=== PATIENT | female | born 1980 | race Caucasian/White ===

== ENCOUNTER 2016-04-25 23:01 | Emergency (ER) | payer OTHER ==
[~2016-04-25 23:01] MED LIST: DILA2TAB2 PO; FOLI1 PO; IBUP600 PO; PANT20 PO; PRENCAP6 PO
--- NOTE | 2016-04-25 23:56 | PD ---
HPI Chief Complaint decreased movement Date Seen: Apr 25, 2016 Travel History International Travel<30 Days: No Contact w/Intl Traveler<30Days: No History of Present Illness HPI 28-29 wks c/o dec FM tonight after dinner , she drank a glass of OJ - no help . , denies bleeding or SROM Para: 3 : 4 History Obstetric History Obstetric History PCS and vaginal deliveries prior Past Surgical History Narrative Surgical c section Social History Alcohol Use: No Tobacco Use: No Substance Abuse: No Allergies-Medications (Allergen,Severity, Reaction): Coded Allergies: Acetaminophen (Verified Allergy, Severe, Anaphylaxis, 05/22/11) Codeine (Verified Allergy, Severe, SWELLING/HIVES - PERCODAN OK PER WRITTEN ORDER, 05/22/11) Morphine (Verified Allergy, Severe, SWELLING/HIVES, 05/22/11) Percocet (Verified Allergy, Severe, HIVES; SWELLING, 05/22/11) Tylenol (Verified Allergy, Severe, SWELLING/HIVES, 05/22/11) Ultram (Verified Allergy, Severe, SWELLING/HIVES, 05/22/11) Home Meds Active Scripts Ibuprofen (Motrin 600 Mg Tab)600 Mg [id number] Mg PO Q6H #30 TAB Prov:Irineo Contreras MD 04/27/14 Hydromorphone Hcl (Dilaudid 2 Mg Tab)2 Mg Tab2 Mg PO Q3H #30 TAB Ref 0 Prov:Irineo Contreras MD 04/27/14 Reported Medications Pantoprazole Sod (Protonix)20 Mg Tabdr20 Mg PO DAILY 04/25/14 Folic Acid (Folate 1 Mg Tab)1 Mg Tab1 Mg PO DAILY 04/25/14 Mv & Min W/Fe Fumarat ( 1) Cap1 Cap PO DAILY 04/25/14 Physical Exam Narrative GENERAL: Well-nourished, well-developed patient. SKIN: Warm and dry. HEAD: Normocephalic and atraumatic. EYES: No scleral icterus. No injection or drainage. ENT: No nasal drainage noted. Mucous membranes pink. Airway patent. NECK: Supple, trachea midline. No JVD. CARDIOVASCULAR: Regular rate and rhythm without murmurs, gallops, or rubs. RESPIRATORY: Breath sounds equal bilaterally. No accessory muscle use. BREASTS: Bilateral exam showed no masses , no retractions, no nipple discharge. ABDOMEN/GI: Abdomen soft, non-tender, bowel sounds present, no rebound, no guarding Gravid to [28-] weeks size Fundal Height: [-28] GENITOURINARY: External Genitalia: intact and normal in appearance BUS glands: [-] Cervix: [-] not checked ] Membranes: [intact ] Uterine Contractions: [none-] FHT's: Category: [1-] Baseline: [-135] Reactive: [yes for 28 wks-] Variability: [-mod] Decels: [none-] EXTREMITIES: No cyanosis or edema. BACK: Nontender without obvious deformity. No CVA tenderness. NEUROLOGICAL: Awake and alert. Motor and sensory grossly within normal limits. Five out of 5 muscle strength in all muscle groups. Normal speech. MDM Interpretation(s) 28-29 wks with dec FM today , here NST reactive for 28 wk fetus , no CTXs , and since being here she is feeling some motion Plan D/C home after 1 hr on monitor F/U with Dr Contreras Diagnosis Diagnosis: Primary Impression: Decreased movement affecting management of in third trimester Additional Impression: Previous section Disposition: DISCHARGE HOME Condition: Stable Ivan Lizarraga II, MD Apr 25, 2016 23:56
== END 2016-04-26 00:05 | disposition home or self-care (01) ==
LOC: HOBED 23:01
DX: O36.8130 Decreased fetal movements, third trimester, not applicable or unspecified (principal); O34.219 Maternal care for unspecified type scar from previous cesarean delivery; Z3A.28 28 weeks gestation of pregnancy
CPT/HCPCS: 99284

== ENCOUNTER 2016-05-28 15:48 | Emergency (ER) | payer OTHER ==
[2016-05-28] VITALS (7 sets, daily range): BP systolic 134–147; BP diastolic 79–86; PULSE 90–109; RESP 18; TEMP 98.3
--- NOTE | 2016-05-28 16:21 | PD ---
HPI Travel History International Travel<30 Days: No Contact w/Intl Traveler<30Days: No Known Affected Area: No History of Present Illness HPI This patient is a 35-year-old 4 para 3003 EDC is July 12, 2016 presently at 33 weeks and 5 days seen in the office today where her blood pressure was elevated 170/100 and she sent to triage area for a PIH workup sugar previous section she is scheduled for repeat section July 05, [address] Contreras course is significant for positive group B strep in her urine history of gastric reflux Presently the patient states she's had a headache since Friday denies any visual changes sees occasional Flonase baby is active no rupture of membranes no vaginal bleeding mild nausea History Past Medical History Narrative Medical Patient is allergic to morphine and codeine Tylenol all all Ultram No major medical problems History of endometriosis Ulcerative colitis GERD Polycystic ovaries History of HPV History of hypertension Obstetric History Obstetric History 4 para 3 Previous Past Surgical History Narrative Surgical Osteophyte removed and left hand Right ovarian torsion Right knee Tonsillectomy Family History Narrative Family History Stroke high blood pressure heart disease melanoma breast cancer and colon cancer Social History Alcohol Use: No Tobacco Use: No Substance Abuse: No Allergies-Medications (Allergen,Severity, Reaction): Coded Allergies: Acetaminophen (Verified Allergy, Severe, Anaphylaxis, 05/22/11) Codeine (Verified Allergy, Severe, SWELLING/HIVES - PERCODAN OK PER WRITTEN ORDER, 05/22/11) Morphine (Verified Allergy, Severe, SWELLING/HIVES, 05/22/11) Percocet (Verified Allergy, Severe, HIVES; SWELLING, 05/22/11) Tylenol (Verified Allergy, Severe, SWELLING/HIVES, 05/22/11) Ultram (Verified Allergy, Severe, SWELLING/HIVES, 05/22/11) Home Meds Active Scripts Ibuprofen (Motrin 600 Mg Tab)600 Mg [id number] Mg PO Q6H #30 TAB Prov:Irineo Contreras MD 04/27/14 Hydromorphone Hcl (Dilaudid 2 Mg Tab)2 Mg Tab2 Mg PO Q3H #30 TAB Ref 0 Prov:Irineo Contreras MD 04/27/14 Reported Medications Pantoprazole Sod (Protonix)20 Mg Tabdr20 Mg PO DAILY 04/25/14 Folic Acid (Folate 1 Mg Tab)1 Mg Tab1 Mg PO DAILY 04/25/14 Mv & Min W/Fe Fumarat ( 1) Cap1 Cap PO DAILY 04/25/14 Review of Systems General / Constitutional: No: Fever, Weight Gain, Weight Loss, Chills, Other Eyes: Other HENT: Headaches Cardiovascular: No: Irregular Rhythm, Chest Pain or Discomfort, Palpitations, Tachycardia, Syncope, Varicosities, Edema, Cyanosis, Other Respiratory: No: Cough, Short of Breath, Wheezing, Other Gastrointestinal: Nausea Genitourinary: No: Urgency, Frequency, Dysuria, Nocturia, Hematuria, Decreased Urinary Output, Oliguria, Hesitancy, Dribbling, Incontinence, Pelvic Pain, Dyspareunia, Discharge, Menorrhagia, Vaginal Bleeding, Other Musculoskeletal: No: Limited ROM, Weakness, Cramping, Edema, Pain, Other Skin: No Rash, No Itching, No Dryness, No Lumps, No Change in Pigmentation, No Change in Nails, No Alopecia, No Lesions, No Breast Lumps, No Breast Tenderness , No Breast Swelling, No Other Neurologic: No: Weakness, Dizziness, Syncope, Focal Abnormalities, Coordination Problem, Headache, Slurred Speech, Seizures, Other Physical Exam Narrative GENERAL: Well-nourished, well-developed patient. Alert oriented 3 and cooperative in no acute distress CARDIOVASCULAR: Regular rate and rhythm without murmurs, gallops, or rubs. RESPIRATORY: Breath sounds equal bilaterally. No accessory muscle use. ABDOMEN/GI: Abdomen soft, non-tender, bowel sounds present, no rebound, no guarding gravid consistent with stated gestational age no epigastric or right upper quadrant tenderness no rebound tenderness Gravid to [-] weeks size consistent with gestational age uterus is nontender Fundal Height: [-] GENITOURINARY: Pelvic exam is deferred as patient has no complaints of labor or ruptured membranes External Genitalia: intact and normal in appearance Membranes: [intact Uterine Contractions: [-]0 FHT's: Category: [-] 1 Baseline: [-] 150 Reactive: [-] + Variability: [-] Moderate [id number] variability Decels: [-] 0 EXTREMITIES: No cyanosis 1+ edema of lower extremities reflexes are 2+ and nonbrisk NEUROLOGICAL: Awake and alert. Motor and sensory grossly within normal limits. Five out of 5 muscle strength in all muscle groups. Normal speech. Data Data Vital Signs Reviewed: Yes (blood pressures 141/84 pulse is 105 she is afebrile) Orders Vital Signs (Adult) ARGELIA.Q4H (05/28/16 15:53) ^ Labor Status (05/28/16 15:53) Urinalysis - C+S If Indicated (05/28/16 15:53) ^ Hydration (05/28/16 15:53) Cbc No Diff, Includes Plts (05/28/16 15:53) Comprehensive Metabolic Panel (05/28/16 15:53) Uric Acid (05/28/16 15:53) MDM Medical Record Reviewed: Yes Interpretation(s) 35-year-old at 33 weeks and 5 days Not in labor Previous -induced hypertension rule out preeclampsia Positive group B strep Narrative Course / MDM Urinalysis shows no protein Platelet count is normal SGOT SGPT normal Uric acid is 5.2 Blood pressures have been running 140s over 80s to 130s over 80s last blood pressure 134/79 Plan External monitoring CBC, CMP, uric acid, urinalysis Blood pressure every 15 minutes on left tilt Reevaluation Discussed with Dr. Contreras Physician Communication Spoke with Dr. Contreras he agrees with evaluation and management States to do a 24-hour urine for protein Have patient follow-up in his office in 24-48 Will therefore discharge home kick count rest on left side to begin a 24- hour urine in the a.m. Diagnosis Diagnosis: Primary Impression: -induced hypertension in third trimester Additional Impression: Previous section Disposition: DISCHARGE HOME Condition: Stable Julee Ramos MD May 28, 2016 16:21
[2016-05-28 16:53] LABS: HEMATOCRIT 38.3 % (35.0-46.0); MEAN CELL VOLUME 91.6 FL (80.0-100.0); MEAN CORPUSCULAR HGB CONC 33.8 % (32.0-36.0); PLATELET COUNT 250 TH/MM3 (150-450); RED BLOOD COUNT 4.18 MIL/MM3 (4.00-5.30); RED CELL DISTRIBUTION WIDTH 13.5 % (11.6-17.2); REVIEW FLAG FINAL; WHITE BLOOD COUNT 10.3 TH/MM3 (4.0-11.0)
[2016-05-28 16:56] LABS: BACTERIA, URINE RARE /hpf; BLOOD, URINE NEG (NEG); COMMENT (UR) CULT NOT INDICATED; CULTURE IF INDICATED CULT NOT INDICATED; GLUCOSE,URINE NEG (NEG); KETONE, URINE NEG (NEG); NITRITE,URINE NEG (NEG); SQUAMOUS EPITHELIAL CELL URINE 6 /hpf (0-5); URINE COLOR YELLOW (YELLW/STRAW)
[2016-05-28 17:16] LABS: ALT (GPT) 27 U/L (10-53); ANION GAP 10 MEQ/L (5-15); AST (GOT) 27 U/L (15-37); BICARBONATE 23.4 MEQ/L (21.0-32.0); BLOOD UREA NITROGEN 6 MG/DL (7-18); CHLORIDE 104 MEQ/L (98-107); GLOMERULAR FILTRATION RATE 132 ML/MIN (>89); POTASSIUM 3.8 MEQ/L (3.5-5.1); SODIUM (NA) 137 MEQ/L (136-145); URIC ACID 5.2 MG/DL (2.6-6.0)
[2016-05-28 17:19] LABS: ALKALINE PHOSPHATASE 94 U/L (45-117); TOTAL BILIRUBIN ADULT 0.3 MG/DL (0.2-1.0)
== END 2016-05-28 17:34 | disposition home or self-care (01) ==
LOC: HOBED 15:48
DX: O13.3 Gestational [pregnancy-induced] hypertension without significant proteinuria, third trimester (principal); O34.219 Maternal care for unspecified type scar from previous cesarean delivery; K21.9 Gastro-esophageal reflux disease without esophagitis; E28.2 Polycystic ovarian syndrome; Z3A.33 33 weeks gestation of pregnancy
CPT/HCPCS: 36415; 59025; 80053; 81001; 84550; 85027

== ENCOUNTER 2016-06-18 11:06 | Emergency (ER) | payer OTHER ==
[2016-06-18] VITALS (8 sets, daily range): BP systolic 148–161; BP diastolic 76–98; PULSE 93–103; RESP 16
[2016-06-18] MEDS ORDERED: ASPIRIN 325 MG/CAFFEINE 40 MG/BUTALBITAL 50 MG CAP PO PRN (11:45)
[2016-06-18 12:06] LABS: HEMATOCRIT 39.1 % (35.0-46.0); MEAN CELL VOLUME 90.6 FL (80.0-100.0); MEAN CORPUSCULAR HEMOGLOBIN 30.4 PG (27.0-34.0); MEAN CORPUSCULAR HGB CONC 33.5 % (32.0-36.0); PLATELET COUNT 222 TH/MM3 (150-450); RED BLOOD COUNT 4.32 MIL/MM3 (4.00-5.30); RED CELL DISTRIBUTION WIDTH 13.9 % (11.6-17.2); REVIEW FLAG FINAL; WHITE BLOOD COUNT 12.6 TH/MM3 (4.0-11.0)
[2016-06-18 12:23] LABS: ALT (GPT) 20 U/L (10-53); ANION GAP 12 MEQ/L (5-15); AST (GOT) 17 U/L (15-37); BICARBONATE 21.5 MEQ/L (21.0-32.0); BLOOD UREA NITROGEN 7 MG/DL (7-18); CHLORIDE 106 MEQ/L (98-107); GLOMERULAR FILTRATION RATE 127 ML/MIN (>89); SODIUM (NA) 139 MEQ/L (136-145); URIC ACID 5.7 MG/DL (2.6-6.0)
[2016-06-18 12:26] LABS: ALKALINE PHOSPHATASE 108 U/L (45-117); TOTAL BILIRUBIN ADULT 0.3 MG/DL (0.2-1.0)
[2016-06-18 12:43] LABS: BLOOD, URINE NEG (NEG); COMMENT (UR) CULTURE INDICATED; CULTURE IF INDICATED CULTURE INDICATED; GLUCOSE,URINE NEG (NEG); KETONE, URINE NEG (NEG); MUCUS URINE FEW /lpf (OCC); NITRITE,URINE NEG (NEG); SQUAMOUS EPITHELIAL CELL URINE 9 /hpf (0-5); URINE COLOR YELLOW (YELLW/STRAW)
--- NOTE | 2016-06-18 13:02 | PD ---
HPI Chief Complaint Headache and seeing Green spots, mild nausea, just overall not feeling well Date Seen: Jun 18, 2016 Travel History International Travel<30 Days: No Contact w/Intl Traveler<30Days: No Known Affected Area: No History of Present Illness HPI Patient is a 35-year-old white female previous 1 at 36-37 weeks a pt of Dr. Contreras who sent her over here for blood pressure evaluation. Patient has been on Procardia last couple weeks for this. First pressure elevation in the is on 05/28/16 when she had 170/100 and the office and was medicated that point. Currently she denies abdominal pain other than just general discomfort no contractions no bleeding or rupture the membranes baby is active heart rate tracing is reactive. Her blood pressures here high 150s over high 80s until the last was 161/98, her urine shows 1+ protein is 1+ edema .the patient states that Dr Contreras plans another for her delivery. Discussed patient's case with Dr. Contreras he recommends home bed rest for 2 more days and then schedule section in 2 days. Para: 3 : 4 History Obstetric History Obstetric History History of macrosomic babies she had a shoulder dystocia one of her vaginal deliveries and had a last time because of a 11 pound baby Past Surgical History Narrative Surgical with last delivery Family History Family History: Negative Social History Alcohol Use: No Tobacco Use: No Substance Abuse: No Allergies-Medications (Allergen,Severity, Reaction): Coded Allergies: Acetaminophen (Verified Allergy, Severe, Anaphylaxis, 05/22/11) Codeine (Verified Allergy, Severe, SWELLING/HIVES - PERCODAN OK PER WRITTEN ORDER, 05/22/11) Morphine (Verified Allergy, Severe, SWELLING/HIVES, 05/22/11) Percocet (Verified Allergy, Severe, HIVES; SWELLING, 05/22/11) Tylenol (Verified Allergy, Severe, SWELLING/HIVES, 05/22/11) Ultram (Verified Allergy, Severe, SWELLING/HIVES, 05/22/11) Home Meds Active Scripts Ibuprofen (Motrin 600 Mg Tab)600 Mg [id number] Mg PO Q6H #30 TAB Prov:Irineo Contreras MD 04/27/14 Hydromorphone Hcl (Dilaudid 2 Mg Tab)2 Mg Tab2 Mg PO Q3H #30 TAB Ref 0 Prov:Irineo Contreras MD 04/27/14 Reported Medications Pantoprazole Sod (Protonix)20 Mg Tabdr20 Mg PO DAILY 04/25/14 Folic Acid (Folate 1 Mg Tab)1 Mg Tab1 Mg PO DAILY 04/25/14 Mv & Min W/Fe Fumarat ( 1) Cap1 Cap PO DAILY 04/25/14 Review of Systems Eyes: Visual changes HENT: Headaches Gastrointestinal: Nausea Neurologic: Headache Physical Exam Vital Signs Date Time Temp Pulse Resp B/P Pulse Ox O2 Delivery O2 Flow Rate FiO2 06/18/16 12:37 16 06/18/16 11:45 101 148/87 Narrative GENERAL: Well-nourished, well-developed patient. SKIN: Warm and dry. HEAD: Normocephalic and atraumatic. EYES: No scleral icterus. No injection or drainage. ENT: No nasal drainage noted. Mucous membranes pink. Airway patent. NECK: Supple, trachea midline. No JVD. CARDIOVASCULAR: Regular rate and rhythm without murmurs, gallops, or rubs. RESPIRATORY: Breath sounds equal bilaterally. No accessory muscle use. BREASTS: Bilateral exam showed no masses , no retractions, no nipple discharge. ABDOMEN/GI: Abdomen soft, non-tender, bowel sounds present, no rebound, no guarding Gravid to [-36] weeks size Fundal Height: [-35 cm] GENITOURINARY: External Genitalia: intact and normal in appearance BUS glands: [-] Cervix: [-] Not checked today she is not matthew and a is planned Membranes: [intact ] Uterine Contractions: [-none] FHT's: Category: [1-] Baseline: [144-] Reactive: [yes-] Variability: [-mod] Decels: [none-] EXTREMITIES: No cyanosis ,,1 + edema. BACK: Nontender without obvious deformity. No CVA tenderness. NEUROLOGICAL: Awake and alert. Motor and sensory grossly within normal limits. Five out of 5 muscle strength in all muscle groups. Normal speech.DTR1+ Data Data Orders Vital Signs (Adult) .ON ADMISSION (06/18/16 11:19) ^ Labor Status (06/18/16 11:19) Urinalysis - C+S If Indicated (06/18/16 11:19) Cbc No Diff, Includes Plts (06/18/16 11:19) Comprehensive Metabolic Panel (06/18/16 11:19) Uric Acid (06/18/16 11:19) [id number] 325-40-50 Mg (Fiorinal (06/18/16 11:45) Urine Culture (06/18/16 11:15) Labs Laboratory Tests Test 06/18/16 06/18/16 11:15 11:25 Urine Color YELLOW Urine Turbidity HAZY Urine pH 7.0 Urine Specific Castell 1.016 Urine Protein 30 Urine Glucose (UA) NEG Urine Ketones NEG Urine Occult Blood NEG Urine Nitrite NEG Urine Bilirubin NEG Urine Urobilinogen LESS THAN 2.0 Urine Leukocyte Esterase NEG Urine RBC LESS THAN 1 Urine WBC 2 Urine WBC Clumps RARE Urine Squamous Epithelial 9 Cells Urine Mucus FEW Microscopic Urinalysis Comment CULTURE INDICATED White Blood Count 12.6 Red Blood Count 4.32 Hemoglobin 13.1 Hematocrit 39.1 Mean Corpuscular Volume 90.6 Mean Corpuscular Hemoglobin 30.4 Mean Corpuscular Hemoglobin 33.5 Concent Red Cell Distribution Width 13.9 Platelet Count 222 Mean Platelet Volume 9.9 Sodium Level 139 Potassium Level 4.0 Chloride Level 106 Carbon Dioxide Level 21.5 Anion Gap 12 Blood Urea Nitrogen 7 Creatinine 0.55 Estimat Glomerular Filtration 127 Rate Random Glucose 85 Uric Acid 5.7 Calcium Level 8.9 Total Bilirubin 0.3 Aspartate Amino Transf 17 (AST/SGOT) Alanine Aminotransferase 20 (ALT/SGPT) Alkaline Phosphatase 108 Total Protein 6.5 Albumin 3.0 Date/Time Procedure Status Source Growth 06/18/16 11:15 Urine Culture Received Urine Clean Catch Pending MDM Interpretation(s) This patient is 35-year-old white female previous 1, 36-37 weeks is presenting for evaluation of high blood pressure. She does have some elevated pressures in the 150-160 range over 80s to last diastolic was 98, urine shows 1+ protein, she is 1+ edema, she also has generalized headache of this been on and off for the last couple weeks with she's been on Procardia for blood pressure. Her laboratories within normal limits. She is scheduled for repeat in the near future Plan Plan discussed the patient's evaluation and treatment with Dr. Contreras her OB doctor and the will at minimum admit the patient hospital for blood pressure issues. And it may be that she needs to go ahead and be delivered at this time Discussed her case with and he recommends home bed rest for 2 more days and then schedule section. Diagnosis Diagnosis: Primary Impression: -induced hypertension in third trimester Additional Impression: Headache Disposition: 01 DISCHARGE HOME Condition: Stable Ivan Lizarraga II, MD Jun 18, 2016 13:02
== END 2016-06-18 13:45 | disposition home or self-care (01) ==
LOC: HOBED 11:06
DX: O13.3 Gestational [pregnancy-induced] hypertension without significant proteinuria, third trimester (principal); Z3A.37 37 weeks gestation of pregnancy
CPT/HCPCS: 36415; 59025; 80053; 81001; 84550; 85027; 87086

== ENCOUNTER 2016-06-18 14:20 | Inpatient (IN) | payer OTHER ==
--- NOTE | 2016-06-20 08:24 | MH ---
cc: SHEILA SANTOS DATE OF ADMISSION 06/20/2016 ADMITTING DIAGNOSIS 1. Intrauterine at 37 weeks. 2. Preeclampsia HISTORY Mrs. Lewis is a 35-year-old female para 3-0-0-3 who has been followed in the clinic for her . In the midportion of her , she began to experience high blood pressure. We actually started her some Procardia and her pressure has continued to climb. She was seen in the emergency room the day before yesterday and was noted to have fairly normal laps, but her pressure remains elevated. She has preeclampsia and has a previous section, therefore we are bringing her in early to perform the surgery because of the preeclampsia. PAST OB HISTORY She is para 3-0-0-3. She does have a history of hypertension. 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 Her cultures were negative. PAST MEDICAL HISTORY Remarkable for: 1. Gastroesophageal reflux disease 2. Hypertension 3. Polycystic ovaries PAST SURGICAL HISTORY Remarkable for: 1. Osteophyte removed from left hand in 2011. 2. Right ovarian torsion with oophorectomy in 2004. 3. Endometriosis surgery 2008. 4. Right knee cartilage repair 1991. 5. delivery 05/05. 6. Tonsillectomy in 1986. SOCIAL HISTORY She is . She denies drugs, alcohol or smoking during the . She was a former smoker. FAMILY HISTORY Remarkable for a history of stroke, high blood pressure, high cholesterol, heart disease, melanoma, breast cancer and colon cancer. ALLERGIES HER ALLERGIES ARE TYLENOL, CODEINE, MORPHINE, AND ULTRAM. MEDICATIONS Her medications are: 1. Procardia 30 mg one p.o. q. Day 2. Protonix 20 mg one p.o. q. day 3. Vitamins one p.o. q. Day 4. Ashtyn 30 mg one p.o. q. Day REVIEW OF SYSTEMS She is having mild headaches. She denies any right upper quadrant pain. PHYSICAL EXAM Her physical exam reveals a well-developed, well-nourished female in no acute distress. VITAL SIGNS: Her weight is 218 pounds. Her last pressure in the clinic was 170/108. HEENT: Normocephalic, atraumatic. NECK: Supple. Trachea is in the midline. No thyromegaly or adenopathy. CHEST: Clear to auscultation. HEART: Regular rate and rhythm without murmur. ABDOMEN: The abdomen is gravid and nontender. The fundus is nontender. PELVIC: The pelvic exam was deferred. EXTREMITIES: There is mild swelling in all extremities. Her reflexes are brisk at +3. The urinalysis in the office reveal +2 protein. LABORATORY DATA Her laboratory workup two days ago was normal except for the proteinuria. ASSESSMENT/PLAN 1. Intrauterine at 37 weeks 2. Preeclampsia with a previous section. We will bring her in today for a repeat section. 3. Carrier of group B strep on her urine culture. We will give her preop antibiotics anyway. 4. Hypertension. We will follow this to the period. She may be chronic hypertensive. R. MD HAILEY Mcmanus/YOVANI /7:55 AM 8:12 AM
[2016-06-20] MEDS ORDERED: LACTATED RINGER'S 1000 ML INJ 1,000 ML IV ONE (13:57)
[2016-06-20 14:12] LABS: AUTOMATED NEUTROPHIL # 7.8 TH/MM3 (1.8-7.7); BASOPHIL % 0.3 % (0.0-2.0); EOSINOPHIL # 0.1 TH/MM3 (0-0.4); EOSINOPHIL % 0.6 % (0.0-4.0); HEMO FLAGS DIFF FINAL; LYMPH % 21.4 % (9.0-44.0); LYMPHOCYTE # 2.4 TH/MM3 (1.0-4.8); MEAN CELL VOLUME 90.1 FL (80.0-100.0); MEAN CORPUSCULAR HEMOGLOBIN 31.5 PG (27.0-34.0); MONO % 6.9 % (0.0-8.0); NEUT % 70.8 % (16.0-70.0); PLATELET COUNT 237 TH/MM3 (150-450); RED BLOOD COUNT 4.22 MIL/MM3 (4.00-5.30); RED CELL DISTRIBUTION WIDTH 13.7 % (11.6-17.2); WHITE BLOOD COUNT 11.1 TH/MM3 (4.0-11.0)
[2016-06-20 14:23] LABS: AMPHETAMINE, URINE NEG (NEG); COCAINE, URINE NEG (NEG)
[2016-06-20 14:25] LABS: BARBITURATES, URINE POS (NEG)
[2016-06-20 14:26] LABS: BACTERIA, URINE FEW /hpf; BLOOD, URINE NEG (NEG); COMMENT (UR) CULT NOT INDICATED; CULTURE IF INDICATED CULT NOT INDICATED; GLUCOSE,URINE NEG (NEG); HYALINE CAST, URINE 2 /lpf (RARE); KETONE, URINE NEG (NEG); MUCUS URINE MANY /lpf (OCC); NITRITE,URINE NEG (NEG); PH, URINE 6.5 (5.0-8.5); SQUAMOUS EPITHELIAL CELL URINE 10 /hpf (0-5); TRANSITIONAL EPI CELLS, URINE <1 /hpf; URINE COLOR YELLOW (YELLW/STRAW)
[2016-06-20] MEDS ORDERED: LACTATED RINGER'S 1000 ML INJ 1,000 ML IV SCH ×2 (14:27→22:57)
[2016-06-20 14:29] LABS: ANION GAP 12 MEQ/L (5-15); AST (GOT) 22 U/L (15-37); BICARBONATE 21.5 MEQ/L (21.0-32.0); BLOOD UREA NITROGEN 10 MG/DL (7-18); CHLORIDE 105 MEQ/L (98-107); GLOMERULAR FILTRATION RATE 117 ML/MIN (>89); POTASSIUM 3.8 MEQ/L (3.5-5.1); SODIUM (NA) 138 MEQ/L (136-145)
[2016-06-20 14:31] LABS: ALKALINE PHOSPHATASE 110 U/L (45-117); ALT (GPT) 20 U/L (10-53); TOTAL BILIRUBIN ADULT 0.3 MG/DL (0.2-1.0)
[2016-06-20] MEDS ORDERED: ceFAZolin 2 GM PREMIX 50 ML IV SCH (15:00)
[2016-06-20] MEDS ORDERED: CITRIC ACID-SODIUM CITRATE LIQ 30 ML UDC PO SCH (15:30)
[2016-06-20] MEDS ORDERED: DICLOFENAC SODIUM 37.5 MG/ML VIAL IV PUSH ONE (15:55)
[2016-06-20] MEDS ORDERED: OXYTOCIN 10 UNIT/ML AMP ONE (15:55)
[2016-06-20] MEDS ORDERED: ONDANSETRON HCL 4 MG/2 ML VIAL ONE (17:49)
[2016-06-20] MEDS ORDERED: OXYTOCIN 30 UNITS-500ML PREMIX 500 ML IV ONE ×2 (18:00)
[2016-06-20] MEDS ORDERED: ZOLPIDEM TARTRATE 5 MG TAB PO PRN (18:00)
[2016-06-20] MEDS ORDERED: SODIUM CHLORIDE 0.9% FLUSH 5 ML FLUSH IV PRN (18:00)
[2016-06-20] MEDS ORDERED: ONDANSETRON HCL 4 MG/2 ML VIAL IV PUSH PRN (18:00)
[2016-06-20] MEDS ORDERED: SIMETHICONE 80 MG CHEWABLE TAB PO PRN (18:00)
[2016-06-20] MEDS ORDERED: LACTATED RINGER'S 1,000 ML BAG IV ONE (18:35)
[2016-06-20] MEDS: HYDROmorphone HCL 4 MG TAB PO PRN (20:26)
[2016-06-20] MEDS ORDERED: SODIUM CHLORIDE 0.9% FLUSH 5 ML FLUSH IV SCH (21:00)
[2016-06-21] MEDS: DICLOFENAC SODIUM 37.5 MG/ML VIAL IV PUSH SCH ×2 (00:42→09:25)
[2016-06-21] MEDS: HYDROmorphone HCL 4 MG TAB PO PRN ×5 (00:42→22:16)
[2016-06-21] MEDS ORDERED: OXYTOCIN 30 UNITS-500ML PREMIX 500 ML IV PRN (04:00)
[2016-06-21 06:06] LABS: AUTOMATED NEUTROPHIL # 8.1 TH/MM3 (1.8-7.7); BASOPHIL % 0.3 % (0.0-2.0); EOSINOPHIL # 0.1 TH/MM3 (0-0.4); EOSINOPHIL % 0.7 % (0.0-4.0); HEMATOCRIT 31.2 % (35.0-46.0); HEMO FLAGS DIFF FINAL; LYMPH % 20.9 % (9.0-44.0); LYMPHOCYTE # 2.3 TH/MM3 (1.0-4.8); MEAN CORPUSCULAR HEMOGLOBIN 31.1 PG (27.0-34.0); MEAN CORPUSCULAR HGB CONC 34.5 % (32.0-36.0); NEUT % 72.1 % (16.0-70.0); PLATELET COUNT 172 TH/MM3 (150-450); RED BLOOD COUNT 3.46 MIL/MM3 (4.00-5.30); RED CELL DISTRIBUTION WIDTH 13.6 % (11.6-17.2); WHITE BLOOD COUNT 11.2 TH/MM3 (4.0-11.0)
[2016-06-21] MEDS ORDERED: HYDROmorphone HCL PF 2 MG/ML VIAL IM ONE (07:45)
--- NOTE | 2016-06-21 12:52 | HHI.OB ---
Subjective Post Operative Day: 1 Objective Result Diagram: 06/21/16 0420 06/20/16 1215 Objective Remarks GENERAL: Well-nourished, well-developed patient. CARDIOVASCULAR: Regular rate and rhythm without murmurs, gallops, or rubs. RESPIRATORY: Breath sounds equal bilaterally. No accessory muscle use. ABDOMEN/GI: Abdomen soft, non-tender, bowel sounds present. Incision: DRESSING Clean, dry and intact. Fundus: Firm, non-tender at umbilicus. GENITOURINARY: Light to moderate bleeding. EXTREMITIES: No cyanosis or edema, non-tender, without signs of DVT. Medications and IVs Current Medications Medications (Trade) Dose Ordered Sig/Neal Route Start Time Stop Time Status Last Admin (Lr 1000 ml Inj) 1,000 ml @ 100 mls/hr Q10H IV 06/20/16 22:57 06/21/16 18:56 06/20/16 20:35 (NS Flush) 2 ml BID IV 06/20/16 21:00 (NS Flush) 2 ml UNSCH PRN IV 06/20/16 18:00 (Mylicon Chew) 80 mg QID PRN PO 06/20/16 18:00 (Motrin) 600 mg Q6H PRN PO 06/20/16 18:00 (Candie-Colace) 2 tab Q12H PRN PO 06/20/16 18:00 (Ambien) 5 mg HS PRN PO 06/20/16 18:00 (M-M-R Ii Inj) 0.5 ml ONCE ONCE SQ 06/21/16 16:00 06/21/16 16:01 (Boostrix Inj) 0.5 ml ONCE ONCE IM 06/21/16 16:00 06/21/16 16:01 (Zofran Inj) 4 mg Q6H PRN IV PUSH 06/20/16 18:00 (Dilaudid) 2 mg Q4H PRN PO 06/20/16 18:00 (Dilaudid) 4 mg Q4H PRN PO 06/20/16 18:00 06/21/16 05:15 Assessment/Plan Problem List: (1) Anemia Plan: POST DAILY IRON (2) delivery delivered Plan: ROUTINE Assessment and Plan PT DOING WELL MONITOR BP, WILL SHOWER TODAY IV DILAUDID GIVEN FOR PAIN, WILL TRANSITION TO ORAL MEDS BONDING WITH INFANT ROUTINE Discharge Planning CONSIDER DC IN 1-2 DAYS Angela Restrepo Jun 21, 2016 12:52
[2016-06-21] MEDS ORDERED: IBUP-232 PO (13:42)
[2016-06-21] MEDS ORDERED: DILA2TAB2 PO (13:42)
[2016-06-21 15:00] VITALS: BP 151/90; PULSE 99; RESP 18; TEMP 98.2
[2016-06-21] MEDS ORDERED: DIPHTH/TETANUS/ACEL PERTUSSIS (BOOSTER) 0.5 ML VIAL/PFS IM ONE (16:00)
[2016-06-21] MEDS ORDERED: MEASLES, MUMPS, RUBELLA VACCINE 0.5 ML VIAL SQ ONE (16:00)
[2016-06-21] MEDS: IBUPROFEN 600 MG TAB PO PRN (17:28)
[2016-06-21 19:30] VITALS: BP 151/105
[2016-06-21 20:00] VITALS: PULSE 106; RESP 18; TEMP 98.1
[2016-06-21] MEDS ORDERED: LABETALOL HCL 100 MG TAB PO ONE (20:45)
[2016-06-21 22:15] VITALS: BP 119/79; PULSE 97; RESP 18; TEMP 97.7
[2016-06-21] MEDS: DOCUSATE SODIUM 50 MG/SENNA 8.6 MG TAB PO PRN (22:16)
[2016-06-22] MEDS: IBUPROFEN 600 MG TAB PO PRN ×4 (00:40→18:36)
[2016-06-22 01:45] VITALS: BP 134/69; PULSE 98; RESP 18
[2016-06-22] MEDS: HYDROmorphone HCL 4 MG TAB PO PRN ×3 (02:17→10:35)
[2016-06-22 08:00] VITALS: BP 153/86; PULSE 101; RESP 18; TEMP 98.3
[2016-06-22] MEDS: LABETALOL HCL 100 MG TAB PO SCH ×2 (09:27→20:59)
--- NOTE | 2016-06-22 10:05 | HHI.OB ---
Subjective Post Operative Day: 3 Remarks Pressures still mildly elevated without SUBRAMANIAN N V doing well otherwise incision tender Objective Vitals/I&O Vital Signs Date Time Temp Pulse Resp B/P Pulse Ox O2 Delivery O2 Flow Rate FiO2 06/22/16 01:45 98 18 06/22/16 01:45 134/69 06/21/16 22:15 97.7 97 18 119/79 06/21/16 20:00 98.1 106 18 06/21/16 19:30 151/105 06/21/16 15:00 98.2 99 18 151/90 Result Diagram: 06/21/16 0420 06/20/16 1215 Objective Remarks GENERAL: Well-nourished, well-developed patient. CARDIOVASCULAR: Regular rate and rhythm without murmurs, gallops, or rubs. RESPIRATORY: Breath sounds equal bilaterally. No accessory muscle use. ABDOMEN/GI: Abdomen soft, non-tender, bowel sounds present. Incision: DRESSING Clean, dry and intact. Fundus: Firm, non-tender at umbilicus. GENITOURINARY: Light to moderate bleeding. EXTREMITIES: No cyanosis or edema, non-tender, without signs of DVT. Medications and IVs Current Medications Medications (Trade) Dose Ordered Sig/Neal Route Start Time Stop Time Status Last Admin (NS Flush) 2 ml BID IV 06/20/16 21:00 (NS Flush) 2 ml UNSCH PRN IV 06/20/16 18:00 (Mylicon Chew) 80 mg QID PRN PO 06/20/16 18:00 (Motrin) 600 mg Q6H PRN PO 06/20/16 18:00 06/22/16 06:37 (Candie-Colace) 2 tab Q12H PRN PO 06/20/16 18:00 06/21/16 22:16 (Ambien) 5 mg HS PRN PO 06/20/16 18:00 (Zofran Inj) 4 mg Q6H PRN IV PUSH 06/20/16 18:00 (Dilaudid) 2 mg Q4H PRN PO 06/20/16 18:00 (Dilaudid) 4 mg Q4H PRN PO 06/20/16 18:00 06/22/16 06:37 (Trandate) 100 mg BID PO 06/22/16 09:00 06/22/16 09:27 Assessment/Plan Problem List: (1) Anemia Plan: POST DAILY IRON (2) delivery delivered Plan: ROUTINE Assessment and Plan now on labetaolol 100 BID will continue plan for discharge in am Discharge Planning CONSIDER DC IN 1-2 DAYS Hailey Garcia MD Jun 22, 2016 10:05
[2016-06-22] MEDS: DOCUSATE SODIUM 50 MG/SENNA 8.6 MG TAB PO PRN (10:34)
[2016-06-22] MEDS: HYDROmorphone HCL 2 MG TAB PO PRN ×3 (15:06→22:50)
[2016-06-22 20:00] VITALS: BP 138/86; PULSE 104; RESP 20; TEMP 98.6
[2016-06-23] MEDS: IBUPROFEN 600 MG TAB PO PRN ×2 (00:40→08:22)
[2016-06-23] MEDS: HYDROmorphone HCL 2 MG TAB PO PRN (03:26)
[2016-06-23 07:50] VITALS: BP 153/97; PULSE 100; RESP 16; TEMP 97.7
[2016-06-23] MEDS: HYDROmorphone HCL 4 MG TAB PO PRN (08:22)
[2016-06-23] MEDS: LABETALOL HCL 100 MG TAB PO SCH (09:16)
--- NOTE | 2016-06-23 10:59 | HHI.OB ---
Subjective Post Operative Day: 3 Remarks Doing well with nurisng stil has elevated blood pressures (150'/90's) no headaches Objective Vitals/I&O Vital Signs Date Time Temp Pulse Resp B/P Pulse Ox O2 Delivery O2 Flow Rate FiO2 06/23/16 07:50 97.7 100 16 153/97 06/22/16 20:00 98.6 06/22/16 20:00 104 20 138/86 Result Diagram: 06/21/16 0420 06/20/16 1215 Objective Remarks GENERAL: Well-nourished, well-developed patient. CARDIOVASCULAR: Regular rate and rhythm without murmurs, gallops, or rubs. RESPIRATORY: Breath sounds equal bilaterally. No accessory muscle use. ABDOMEN/GI: Abdomen soft, non-tender, bowel sounds present. Incision: DRESSING Clean, dry and intact. Fundus: Firm, non-tender at umbilicus. GENITOURINARY: Light to moderate bleeding. EXTREMITIES: No cyanosis or edema, non-tender, without signs of DVT. Medications and IVs Current Medications Medications (Trade) Dose Ordered Sig/Neal Route Start Time Stop Time Status Last Admin (NS Flush) 2 ml BID IV 06/20/16 21:00 (NS Flush) 2 ml UNSCH PRN IV 06/20/16 18:00 (Mylicon Chew) 80 mg QID PRN PO 06/20/16 18:00 (Motrin) 600 mg Q6H PRN PO 06/20/16 18:00 06/23/16 08:22 (Candie-Colace) 2 tab Q12H PRN PO 06/20/16 18:00 06/22/16 10:34 (Ambien) 5 mg HS PRN PO 06/20/16 18:00 (Zofran Inj) 4 mg Q6H PRN IV PUSH 06/20/16 18:00 (Dilaudid) 2 mg Q4H PRN PO 06/20/16 18:00 06/23/16 03:26 (Dilaudid) 4 mg Q4H PRN PO 06/20/16 18:00 06/23/16 08:22 (Trandate) 100 mg BID PO 06/22/16 09:00 06/23/16 09:16 Assessment/Plan Problem List: (1) Anemia Plan: POST DAILY IRON (2) delivery delivered Plan: ROUTINE Assessment and Plan increase to 200 labetolol discharge home return 1 week Discharge Planning home today Hailey Garcia MD Jun 23, 2016 10:59
[2016-06-23] MEDS ORDERED: LABE200T2 PO (11:01)
--- NOTE | 2016-06-23 11:01 | HHI.DCPOC ---
Discharge Care Plan Report Symptoms to Your Doctor -Temperate above 100.5 degrees -Redness, of incision or excessive or foul smelling drainage -Unusual pain or calf pain -Increased vaginal bleeding -Painful or difficulty urinating -Feelings of extreme sadness or anxiety after 2 weeks Goals to Promote Your Health * To prevent worsening of your condition and complications * To maintain your health at the optimal level Directions to Meet Your Goals Take your medications as prescribed Follow your dietary instruction Follow activity as directed Ensure plenty of rest for recovery Drink fluids for hydration Keep your appointments as scheduled Take your immunizations and boosters as scheduled If your symptoms worsen call your PCP, if no PCP go to Urgent Care Center or Emergency Room Smoking is Dangerous to Your Health. Avoid second hand smoke Call the 24-hour crisis hotline for domestic abuse at Hailey Garcia MD Jun 23, 2016 11:01
[2016-06-24 08:04] LABS: BATH SALTS (MDPV) UR NEG (NEG); ECSTASY (MDMA) UR NEG (NEG); HEROIN (6-ACETYLMORPHINE) UR NEG (NEG); K2 SPICE UR NEG (NEG); OBMETHADONE UR NEG (NEG); OXYCODONE (PERCODAN) NEG (NEG); PHENCYCLIDINE URINE NEG (NEG)
--- NOTE | 2016-06-24 12:23 | MP ---
cc: Irineo CONTRERAS MD DATE OF SURGERY: 06/20/2016 PREOPERATIVE DIAGNOSIS 1. Intrauterine at 37 weeks. 2. Preeclampsia. 3. Previous section. POSTOPERATIVE DIAGNOSIS 1. Intrauterine at 37 weeks. 2. Preeclampsia. 3. Previous section. PROCEDURE A repeat low transverse section. ANESTHESIA Spinal. SURGEON Irineo Contreras MD FINDINGS Normal viable . Good Apgars. Normal uterus, tubes and ovaries. Normal anterior and posterior cul-de-sac. COMPLICATIONS None. COUNTS Counts were correct. ESTIMATED BLOOD LOSS 600 ccs. FLUIDS Crystalloids. CONDITION The patient tolerated the procedure well and went to the recovery room in good condition. PROCEDURE IN DETAIL The patient was taken to the operating room identified by name band and verbally. She was given a spinal anesthetic. A Mccarthy catheter was inserted. She was prepped and draped for section. The old Pfannenstiel incision was removed and excised completely and the incision was taken down to the fascia. The fascia was taken off the rectus muscle by blunt and sharp dissection. The peritoneum was entered under direct vision without complication. The incision was extended with care to avoid the urinary bladder. A bladder blade was placed and a bladder flap created over the lower uterine segment which was well-developed. The uterus was then scored in a transverse manner along the lower uterine segment and taken down in the midline until the uterine cavity was entered. The incision was extended with the surgeon's fingers. The vertex was grasped and delivered through the incision without difficulty. The hypopharynx and nasopharynx were suctioned. The remainder of the was delivered. The cord was doubly clamped and cut and the handed to the resuscitation team that was present. Cord blood was obtained. The placenta was delivered manually without difficulty. The uterus was curettaged twice with a wet lap. The uterine incision was repaired with 2-0 Vicryl a running locking fashion, the second layer imbricating the first. The cul-de-sac and gutters were cleaned of blood and debris with a large amount of irrigation. The uterus was delivered back into the abdomen. The incision was again inspected and was hemostatic. The rectus muscles were reapproximated with 0 Vicryl in an interrupted fashion. The fascia was repaired with 0 Vicryl from lateral to midline bilaterally in a running fashion. The subcutaneous tissue was repaired with 3-0 Vicryl. The skin was repaired with 4-0 Monocryl in a subcuticular manner. Steri-Strips were applied. The wound was sterilely dressed. She tolerated the procedure well and went to the recovery room in good condition. R. MD HAILEY Mcmanus/ZAID /10:39 AM /12:06 PM
== END 2016-06-23 12:02 | disposition home or self-care (01) | DRG 766 ==
LOC: H2EB 06-20 12:11 → H1EA 06-20 19:01
PROVIDERS: ADMIT Obstetrics & Gynecology; ATTEND Obstetrics & Gynecology
PROC: 10D00Z1 Extraction of Products of Conception, Low, Open Approach (ICD-10-PCS; principal; 2016-06-20)
DX: O11.4 Pre-existing hypertension with pre-eclampsia, complicating childbirth (principal); D50.9 Iron deficiency anemia, unspecified; O10.02 Pre-existing essential hypertension complicating childbirth; Z3A.37 37 weeks gestation of pregnancy; Z37.0 Single live birth; O99.02 Anemia complicating childbirth; O34.211 Maternal care for low transverse scar from previous cesarean delivery
CPT/HCPCS: 36415; 59025; 80053; 80307; 81001; 84550; 85025; 85027; 86850; 86900; 86901; 87086; 90715; G0481; J0690; J1130; J1170; J2405; J2590; J3010; J7120